=== PATIENT | female | born 1985 | race Two or more races ===

== ENCOUNTER 2019-04-30 22:10 | Emergency (ER) | payer OTHER ==
[~2019-04-30] VITALS: Ht 172.7 cm; Wt 68.0 kg
--- NOTE | 2019-04-30 22:44 | NUR ---
GIOVANNA ONEIL AT BEDSIDE TO VERNELL SUAZO.
[2019-04-30] MEDS ORDERED: KETOROLAC TROMETHAMINE INJ 60 MG/2 ML VIAL IM ONE ×2 (22:51→23:00)
[2019-04-30] MEDS ORDERED: ONDANSETRON HCL/PF 4 MG/2 ML VIAL ONE (22:51)
[2019-04-30] MEDS ORDERED: MORPHINE SULFATE INJ 4 MG/ML DISP.SYRIN ONE (22:52)
[2019-04-30] MEDS ORDERED: ONDANSETRON HCL/PF - ER 4 MG/2 ML VIAL IM ONE (23:00)
[2019-04-30] MEDS ORDERED: MORPHINE SULFATE INJ 10 MG/ML DISP.SYRIN IM ONE (23:00)
--- NOTE | 2019-04-30 23:08 | NUR ---
YUE FROM HOME. TO ER BED 9. AAOX4. BREATHING EVEN AND UNLABORED. ANXIOUS, CRYING. C/O R EAR PAIN. PT REPORTS THAT ITS BEEN 3 DAYS AND REPORTS THAT SHE IS TAKING AUGMENTIN AND IBUBROPHEN BUT NOT EFFECTIVE. PT RATE 05/03 SHANNON. AT BEDSIDE FOR EVAL. ORDERS, RECEIVED NOTED AND CARRIED OUT.
[2019-05-01] MEDS ORDERED: CEFTRIAXONE 1 G VIAL IM ONE
[2019-05-01] MEDS ORDERED: LIDOCAINE /MPF 1% VIAL 5 ML VIAL ONE (00:40)
[2019-05-01] MEDS ORDERED: CEFTRIAXONE 1 G VIAL ONE (00:40)
--- NOTE | 2019-05-01 00:42 | NUR ---
Patient discharged to home in stable condition. Written and verbal after care instructions given. Patient verbalizes understanding of instruction. Pt ambulatory with a steady gait
[2019-05-01 00:45] VITALS: BP 126/88
[2019-05-02] MEDS ORDERED: METF-442 PO (01:39)
[2019-05-02] MEDS ORDERED: INSU100V7 SQ (01:39)
== END 2019-05-01 00:45 | disposition home or self-care (01) ==
LOC: ER 22:15
DX: H65.91 Unspecified nonsuppurative otitis media, right ear (principal); H72.91 Unspecified perforation of tympanic membrane, right ear; E11.9 Type 2 diabetes mellitus without complications
CPT/HCPCS: 96372 ×4; 99283; J0696; J1885; J2270; J2405 ×2; J3490

== ENCOUNTER 2019-05-01 23:23 | Inpatient (IN) | payer OTHER ==
[~2019-05-01] VITALS: Ht 172.7 cm; Wt 66.2 kg
--- NOTE | 2019-05-01 23:40 | NUR ---
LIZA FROM HOME C/O FLU LIKE SYMPTOMS. PT ALSO C/O NAUSEA. PT RECENTLY SEEN AND DISCHARGED FROM [facility] ER YESTERDAY WITH EAR INFECTION DX. PT AAOX4. RESPIRATIONS EVEN AND UNLABORED. SKIN INTACT. ABLE TO AMBULATE WITH STEADY GAIT. VITAL SIGNS STABLE. NO ACUTE DISTRESS NOTED AT THIS TIME. WILL CONTINUE TO MONITOR
[2019-05-02] VITALS (25 sets, daily range): BP systolic 93–136; BP diastolic 55–87
[2019-05-02] MEDS ORDERED: ONDANSETRON HCL/PF 4 MG/2 ML VIAL IVP ONE (00:30)
[2019-05-02] MEDS ORDERED: IV NS 0.9% 1,000 ML BAG IV ONE (00:30)
[2019-05-02] MEDS ORDERED: ONDANSETRON HCL/PF 4 MG/2 ML VIAL ONE ×3 (00:32→03:04)
--- NOTE | 2019-05-02 00:40 | NUR ---
IV INITIATED R AC 20G. LABS DRAWN FROM SITE. DEPUTY SHERIFF LIEUTENANT AT BEDSIDE FOR COLLECTION. IV INTACT AND PATENT, PLACED ON SALINE LOCK
[2019-05-02 00:43] LABS: BASOPHILS % (AUTO) 0.3 % (0.0-2.0); HEMATOCRIT 48 % (33-45); HEMOGLOBIN 15.5 g/dL (11.5-14.8); LYMPHOCYTES % (AUTO) 9.2 % (20.0-44.0); MEAN CORPUSCULAR HGB CONC 32 g/dl (31.0-36.0); MEAN CORPUSCULAR VOLUME 87 fL (82-100); MONOCYTES % (AUTO) 9.1 % (2.0-12.0); NEUTROPHILS # (AUTO) 9.2 /CMM (1.8-8.9); NEUTROPHILS % (AUTO) 81.4 % (43.0-81.0); PLATELET COUNT (AUTO) 407 /CMM (150-450); RED BLOOD CELL COUNT(AUTO) 5.49 MIL/uL (4.0-5.2); WHITE BLOOD COUNT (AUTO) 11.3 K/uL (4.3-11.0)
[2019-05-02 00:53] LABS: CALCIUM, SERUM 8.8 mg/dL (8.5-10.1); CREATININE 1.1 mg/dL (0.6-1.3); POTASSIUM 4.1 mmol/L (3.5-5.1)
[2019-05-02] MEDS ORDERED: ONDANSETRON HCL/PF 4 MG/2 ML VIAL IV ONE (01:30)
--- NOTE | 2019-05-02 01:37 | NUR ---
PT UNABLE TO PROVIDE URINE SAMPLE AT THIS TIME. ER PA AWARE
[2019-05-02] MEDS ORDERED: INSU100V7 SQ (01:39)
[2019-05-02] MEDS ORDERED: METF-442 PO (01:39)
--- NOTE | 2019-05-02 01:54 | NUR ---
URINE COLLECTED AND SENT TO LAB
[2019-05-02 02:02] LABS: APPEARANCE,URINE Slightly Cloudy (CLEAR); BILIRUBIN,URINE SMALL (NEGATIVE); BLOOD, URINE Large Ery/uL (NEGATIVE); COLOR,URINE Yellow (YELLOW); KETONES,URINE 80 (NEGATIVE); LEUKOCYTE ESTERASE ,URINE Negative (NEGATIVE); NITRITE, URINE Negative (NEGATIVE); PROTEIN,URINE 100 mg/dl (NEGATIVE); UGLUCOSE 500 MG/DL mg/dL (NEGATIVE); UROBILINOGEN,URINE 0.2 EU/dL (0.2)
[2019-05-02 02:17] LABS: BACTERIA,URINE Few /HPF (None Seen); RBC,URINE 51-80 /HPF (0-2); SQUAMOUS EPITHELIAL CELL,UR Few /HPF (None Seen)
[2019-05-02] MEDS ORDERED: IV NS 0.9% 1,000 ML IV STA (02:56)
[2019-05-02] MEDS ORDERED: IV NS 0.9% 1,000 ML IV PRN (02:56)
[2019-05-02] MEDS ORDERED: ZOLPIDEM TARTRATE 5 MG TABLET PO PRN (03:00)
[2019-05-02] MEDS ORDERED: INSULIN REGULAR, HUMAN 100 UNIT in IV NS 0.9% 99 ML IV PRN ×2 (03:00)
--- NOTE | 2019-05-02 03:05 | NUR ---
REPORT GIVEN TO ANABEL GALLARDO FOR ELVIS
[2019-05-02] MEDS ORDERED: ONDANSETRON HCL/PF 4 MG/2 ML VIAL IV STA (03:08)
--- NOTE | 2019-05-02 03:26 | NUR ---
PT TRANSFERRED PER ACLS PROTOCOL
--- NOTE | 2019-05-02 03:45 | NUR ---
CANNON CREWMEMBER - ADMISSION NOTES - PT RECEIVED FROM ER, AWAKE, ALERT, ORIENTED X 4 ADMITTED FOR DKA WITH ELEVATED ANION GAP AND LOW CO2. PT IS ON ROOM AIR, PER DR RAJ WEATHERS PT WILL BE GIVEN 1000 ML NS BOLUS AND STARTED ON NS @ 200 ML/HR AND WILL BE ON INSULIN DRIP BLOOD SUGAR X 1.5 DIVIDED BY 100 = UNITS PER HOUR. PT HAS RIGHT AC 20G AND LEFT AC 20G. WILL CONTINUE MONITOR
[2019-05-02] MEDS: ENOXAPARIN SODIUM 40 MG/0.4 ML DISP.SYRIN SQ SCH (04:02)
[2019-05-02] MEDS: ACETAMINOPHEN 325 MG TABLET PO PRN (04:07)
--- NOTE | 2019-05-02 04:29 | NUR ---
pt is a hard stick for lab, pt complaining of pain. Chago Maciel DNP notified and ordered PICC line insertion. pt signed consent for PICC line, nursing supervisor dry cell assembly notified.
[2019-05-02 04:54] LABS: BASOPHILS # (AUTO) 0.1 /CMM (0.0-0.2); BASOPHILS % (AUTO) 0.6 % (0.0-2.0); HEMATOCRIT 44 % (33-45); HEMOGLOBIN 14.1 g/dL (11.5-14.8); LYMPHOCYTES # (AUTO) 1.3 /CMM (0.8-4.8); LYMPHOCYTES % (AUTO) 8.9 % (20.0-44.0); MEAN CORPUSCULAR HGB CONC 32 g/dl (31.0-36.0); MEAN CORPUSCULAR VOLUME 88 fL (82-100); MONOCYTES # (AUTO) 1.4 /CMM (0.1-1.30); MONOCYTES % (AUTO) 9.5 % (2.0-12.0); NEUTROPHILS # (AUTO) 11.6 /CMM (1.8-8.9); PLATELET COUNT (AUTO) 415 /CMM (150-450); RED BLOOD CELL COUNT(AUTO) 5.03 MIL/uL (4.0-5.2); WHITE BLOOD COUNT (AUTO) 14.3 K/uL (4.3-11.0)
[2019-05-02 05:08] LABS: ALBUMIN 3.5 g/dL (3.4-5.0); BILIRUBIN,TOTAL 0.3 mg/dL (0.2-1.0); CALCIUM, SERUM 7.5 mg/dL (8.5-10.1); CREATININE 0.9 mg/dL (0.6-1.3); MAGNESIUM 1.8 mg/dL (1.8-2.4); PHOSPHORUS 2.7 mg/dL (2.5-4.9); POTASSIUM 4.3 mmol/L (3.5-5.1); TOTAL PROTEIN, SERUM 8.2 g/dL (6.4-8.2)
[2019-05-02] MEDS: BLOOD SUGAR DIAGNOSTIC 1 EACH STRIP IN SCH ×19 (05:10→23:21)
[2019-05-02] MEDS ORDERED: Potassium Chloride 20 MEQ in IV D5/ 0.9% NACL 1,000 ML IV PRN (06:00)
[2019-05-02] MEDS: INSULIN REGULAR, HUMAN 100 UNIT in IV NS 0.9% 99 ML IV PRN ×2 (06:14)
[2019-05-02 08:32] LABS: CALCIUM, SERUM 7.8 mg/dL (8.5-10.1); POTASSIUM 3.8 mmol/L (3.5-5.1)
[2019-05-02 09:00] LABS: ABG BASE EXCESS -24.1 mmol/L; ABG PCO2 10.8 mmHg (35.0-45.0); ABG PH 7.096 (7.350-7.450); ABG PO2 164.7 mmHg (75.0-100.0); AaDO2 79.5 mmHg; COHb 0.9 % (0.5-1.5); MetHb 0.2 % (0.0-1.5); O2Hb 96.9 % (94.0-97.0); SITE, ABG Left Radial; VENT MODE, BG 4L NC
[2019-05-02] MEDS ORDERED: Sodium Bicarbonate 150 MEQ in IV D5W 1,000 ML IV ONE (09:30)
[2019-05-02] MEDS ORDERED: PIPERACILLIN /TAZOBACTAM 4.5 G in IV D5W 50 ML IV ONE (10:00)
[2019-05-02 12:02] LABS: CALCIUM, SERUM 7.5 mg/dL (8.5-10.1); CREATININE 0.8 mg/dL (0.6-1.3); MAGNESIUM 1.8 mg/dL (1.8-2.4); POTASSIUM 3.3 mmol/L (3.5-5.1)
--- NOTE | 2019-05-02 13:22 | NUR ---
RN NOTES 0730-RECEIVED PATIENT FROM RN. PATIENT REMAINS ON INSULIN DRIP FOR DKA.IVF ALSO INFUSING.SHE IS TACHYPNEIC, TACHYCARDIC. DENIES PAIN. 1100-ON INUSLIN DRIP, BICARB DRIP ONGOING, FOR PICC LINE PLACEMENT. 1200-INSULIN DRIP ONGOING. DENIES PAIN. BICARB DRIP ONGOING, SINUS RHYTHM. 1315-LABS RELAYED TO DR Rena MCKENZIE MD WITH ORDERS NOTED
[2019-05-02 13:32] LABS: ABG BASE EXCESS -15.8 mmol/L; ABG OXYGEN SATURATION 97.9 % (92.0-98.5); ABG PCO2 18.9 mmHg (35.0-45.0); ABG PH 7.281 (7.350-7.450); ABG PO2 152.5 mmHg (75.0-100.0); AaDO2 53.5 mmHg; COHb 0.2 % (0.5-1.5); MetHb 0.1 % (0.0-1.5); O2Hb 97.6 % (94.0-97.0); SITE, ABG Left Brachial; VENT MODE, BG 3L NC
[2019-05-02] MEDS: Magnesium 1GM/D5W 100ML PREMIX 100 ML IV SCH ×2 (13:33→14:31)
[2019-05-02] MEDS: POTASSIUM CL. PREMIX PERIPHER. 50 ML IV SCH ×4 (15:03→18:28)
[2019-05-02] MEDS: PIPERACILLIN /TAZOBACTAM 3.375 G in IV D5W 100 ML IV SCH (16:26)
[2019-05-02] MEDS ORDERED: SODIUM BICARBONATE 5 ML VIAL IV SCH (17:30)
[2019-05-02 18:10] LABS: CALCIUM, SERUM 7.4 mg/dL (8.5-10.1); CREATININE 0.8 mg/dL (0.6-1.3); MAGNESIUM 2.5 mg/dL (1.8-2.4)
[2019-05-02] MEDS: Sodium Bicarbonate 150 MEQ in IV D5W 1,000 ML IV PRN (18:13)
--- NOTE | 2019-05-02 19:56 | NUR ---
rn notes 1400-remains on insulin drip, titrated as ordered, bicarb drip ongoing as well. patient breathing noted within range, saturation up to 100%. no n/v 1700-afebrile, insuloin and bicarb drip ongoing 1900-labs relayed to dr. harley MD with orders noted. report gvien to rn for further care. patient started on clear liquids, no n/v noted.
--- NOTE | 2019-05-02 20:00 | NUR ---
CONCRETE SAW OPERATOR - NOTES - PT RECEIVED IN BED, AWAKE, ALERT, ORIENTED X 4 ADMITTED FOR DKA. PT IS ON 3L NASAL CANNULA. PT HAS YANICK PICC LINE WITH D5W W 150 MEQ BICARB @ 150 ML/HR AND INSULIN DRIP BLOOD SUGAR X 2 DIVIDED BY 100 = UNITS PER HOUR. PT HAS RIGHT AC 20G AND LEFT AC 20G. WILL CONTINUE MONITOR
[2019-05-02] MEDS: POTASSIUM CHLORIDE 10 MEQ TABLET.SA PO SCH ×4 (20:25→23:38)
[2019-05-02 23:11] LABS: CALCIUM, SERUM 7.2 mg/dL (8.5-10.1); CREATININE 0.7 mg/dL (0.6-1.3); POTASSIUM 2.9 mmol/L (3.5-5.1)
[2019-05-02 23:14] LABS: MAGNESIUM 2.2 mg/dL (1.8-2.4)
[2019-05-02 23:29] LABS: PHOSPHORUS 0.3 mg/dL (2.5-4.9)
[2019-05-03] VITALS (20 sets, daily range): BP systolic 88–118; BP diastolic 48–74
[2019-05-03] MEDS ORDERED: D5W IV SCH ×2
[2019-05-03] MEDS ORDERED: POTASSIUM PHOSPHATE MM IV SCH ×2
[2019-05-03] MEDS: BLOOD SUGAR DIAGNOSTIC 1 EACH STRIP IN SCH ×13 (00:07→22:41)
[2019-05-03] MEDS: ACETAMINOPHEN 325 MG TABLET PO PRN ×2 (00:09→07:34)
[2019-05-03] MEDS: PIPERACILLIN /TAZOBACTAM 3.375 G in IV D5W 100 ML IV SCH ×4 (00:09→23:41)
[2019-05-03] MEDS: POTASSIUM CHLORIDE 10 MEQ TABLET.SA PO SCH ×2 (00:25→01:25)
[2019-05-03] MEDS: ONDANSETRON HCL/PF 4 MG/2 ML VIAL IVP PRN ×2 (00:50→11:34)
[2019-05-03] MEDS: POTASSIUM PHOSPHATE MM 15 MMOL in IV D5W 250 ML IV SCH ×2 (00:51→05:23)
[2019-05-03] MEDS ORDERED: POTASSIUM CHLORIDE 10 MEQ TABLET.SA ONE (01:24)
[2019-05-03] MEDS: Sodium Bicarbonate 150 MEQ in IV D5W 1,000 ML IV PRN (02:11)
[2019-05-03] MEDS: ENOXAPARIN SODIUM 40 MG/0.4 ML DISP.SYRIN SQ SCH (02:14)
[2019-05-03 04:16] LABS: CALCIUM, SERUM 7.3 mg/dL (8.5-10.1); CREATININE 0.7 mg/dL (0.6-1.3); MAGNESIUM 2.2 mg/dL (1.8-2.4); POTASSIUM 3.1 mmol/L (3.5-5.1)
[2019-05-03 04:22] LABS: PHOSPHORUS 0.5 mg/dL (2.5-4.9)
[2019-05-03] MEDS: INSULIN REGULAR, HUMAN 100 UNIT in IV NS 0.9% 99 ML IV PRN ×2 (04:23)
--- NOTE | 2019-05-03 07:00 | NUR ---
RN NOTES RECEIVED PT ON BED, A/Ox4, ON 3L O2 N/C , NO SOB NOTED, ON TELE SR HR IN 80'S , ON INSULIN GTT AND IVF , R UPPER ARM PICC LINE SITE CLEAN,DRY AND INTACT, SR UP x3, CALL LIGHT WITHIN EASY REACH, BED LOCKED AND IN LOWEST POSITION, CONTINUE TO MONITOR BLOOD GLUCOSE AND MONITOR PT CLOSELY.
[2019-05-03 07:54] LABS: CALCIUM, SERUM 7.3 mg/dL (8.5-10.1); CREATININE 0.6 mg/dL (0.6-1.3); MAGNESIUM 2.1 mg/dL (1.8-2.4)
[2019-05-03 07:57] LABS: PHOSPHORUS 0.9 mg/dL (2.5-4.9); POTASSIUM 2.8 mmol/L (3.5-5.1)
--- NOTE | 2019-05-03 08:15 | NUR ---
RN NOTES DR ROSALES NOTIFED REGARDING K=2.8 AND PHOSPHOROUS 0.9, NEW ORDER RECEIVED.
[2019-05-03] MEDS ORDERED: IV NS 0.9% 1,000 ML BAG IV PRN (09:00)
[2019-05-03] MEDS ORDERED: INSULIN GLARGINE, 100 UNIT/ML CARTRIDGE SQ SCH (09:00)
[2019-05-03] MEDS ORDERED: POTASSIUM PHOSPHATE MM 15 MMOL in IV D5W 250 ML IV SCH (09:00)
[2019-05-03] MEDS: IV NS 0.9% 1,000 ML IV PRN (09:14)
[2019-05-03 09:23] LABS: BASOPHILS # (AUTO) 0.1 /CMM (0.0-0.2); BASOPHILS % (AUTO) 0.9 % (0.0-2.0); EOSINOPHILS % (AUTO) 0.7 % (0.0-6.0); HEMATOCRIT 31 % (33-45); HEMOGLOBIN 10.6 g/dL (11.5-14.8); LYMPHOCYTES # (AUTO) 1.4 /CMM (0.8-4.8); LYMPHOCYTES % (AUTO) 22.7 % (20.0-44.0); MEAN CORPUSCULAR HGB CONC 34 g/dl (31.0-36.0); MEAN CORPUSCULAR VOLUME 82 fL (82-100); MONOCYTES # (AUTO) 0.8 /CMM (0.1-1.30); MONOCYTES % (AUTO) 12.3 % (2.0-12.0); NEUTROPHILS % (AUTO) 63.4 % (43.0-81.0); PLATELET COUNT (AUTO) 268 /CMM (150-450); RED BLOOD CELL COUNT(AUTO) 3.82 MIL/uL (4.0-5.2); WHITE BLOOD COUNT (AUTO) 6.3 K/uL (4.3-11.0)
[2019-05-03] MEDS ORDERED: DEXTROSE 50%-WATER 50 ML DISP.SYRIN IV PRN (10:00)
[2019-05-03] MEDS ORDERED: POTASSIUM CHLORIDE 20 MEQ TAB.PRT.SR PO SCH (10:30)
[2019-05-03] MEDS ORDERED: NEUTRA PHOS 1 POWD.PACKET PO ONE (11:00)
[2019-05-03] MEDS: INSULIN REGULAR, HUMAN 100 UNIT/ML 3 ML VIAL SQ PRN ×2 (12:22→17:07)
--- NOTE | 2019-05-03 12:57 | NUR ---
RN NOTES PT C/O H/A , STATED WANTS IBUPROFEN , DR BAINS NOTIFED , NEW ORDER RECEIVED .CONTINUE TO MONITOR.
[2019-05-03] MEDS ORDERED: IBUPROFEN 400 MG TABLET PO PRN (13:00)
--- NOTE | 2019-05-03 13:30 | NUR ---
RN NOTES PT REFUSED TO USE BSC. PT WALKED TO THE BATHROOM . VOIDING WELL, NO DISTRESS NOTED . CONTINUE TO MONITOR.
[2019-05-03] MEDS: Potassium Phosphate meq 11 MEQ in IV NS 0.9% 100 ML IV SCH ×2 (13:57→17:00)
--- NOTE | 2019-05-03 16:00 | NUR ---
RN NOTES PT STATED FEELS BETTER , VSS STABLE, CONTINUE TO MONITOR .
--- NOTE | 2019-05-03 18:00 | NUR ---
RN NOTES REPORT GIVEN TO SHAMIKA LITTLE FOR CONTINUITY OF CARE , PT TRANSFERRED TO ROOM 106, MS STATUS VIA W/C WITH ALL HER BELONGINGS IN STABLE CONDITION.
[2019-05-03 19:39] LABS: CALCIUM, SERUM 7.4 mg/dL (8.5-10.1); CREATININE 0.7 mg/dL (0.6-1.3); POTASSIUM 3.8 mmol/L (3.5-5.1)
[2019-05-03 19:43] LABS: PHOSPHORUS 3.1 mg/dL (2.5-4.9)
[2019-05-03] MEDS: *INSULIN REGULAR(HUMULIN R)HUM 100 UNIT/ML VIAL SQ PRN (22:37)
[2019-05-04] VITALS: BP 111/70
[2019-05-04] MEDS: ENOXAPARIN SODIUM 40 MG/0.4 ML DISP.SYRIN SQ SCH (03:25)
[2019-05-04] MEDS: IV NS 0.9% 1,000 ML IV PRN (03:32)
[2019-05-04 04:00] VITALS: BP 124/85
[2019-05-04] MEDS ORDERED: KETOROLAC TROMETHAMINE INJ 30 MG/ML VIAL IV ONE ×2 (04:00→04:30)
--- NOTE | 2019-05-04 04:02 | NUR ---
MS/RN C/O EAR PAIN DUE TO PRESSURE, OFFERED MOTRIN BUT REFUSED, NOTIFIED DR. RAJ WEATHERS WITH ORDER OF TORADOL 30 MG IVP X 1 WAS RECEIVED. CARRIED OUT.
[2019-05-04] MEDS: INSULIN REGULAR, HUMAN 100 UNIT/ML 3 ML VIAL SQ PRN ×2 (05:59→12:24)
[2019-05-04] MEDS: BLOOD SUGAR DIAGNOSTIC 1 EACH STRIP IN SCH ×4 (06:00→21:32)
--- NOTE | 2019-05-04 06:20 | NUR ---
MS/RN PATIENT IS SLEEPING, EASILY AROUSABLE, APPEAR COMFORTABLE, NO DISTRESS NOTED, ALL NEEDS ATTENDED AT THIS TIME, WILL CONTINUE TO MONITOR.
--- NOTE | 2019-05-04 07:11 | NUR ---
MS RN OPENING NOTE RECEIVED REPORT FROM [facility] SHIFT NURSE. PT AWAKE IN BED, ALERT AND ORIENTED 4, ON ROOM AIR, SATURATING WELL, NO SIGNS OF RESPIRATORY DISTRESS NOTED. IV SITE ON RIGHT AC G20 PATENT, INTACT WITH SALINE LOCK. IV SITE ON LEFT AC G20 PATENT, INTACT, WITH SALINE LOCK. NS INFUSING AT 125ML/HR INTO PICC LINE ON RIGHT UPPER ARM. BED IN LOW POSITION, LOCKED, CALL LIGHT WITHIN REACH. INTRODUCED SELF TO PT AND DISCUSSED PLAN OF CARE.
[2019-05-04] MEDS: PIPERACILLIN /TAZOBACTAM 3.375 G in IV D5W 100 ML IV SCH ×3 (07:32→23:47)
--- NOTE | 2019-05-04 07:35 | NUR ---
RECEIVED CALL FROM LAB WITH CRITICAL RESULT POTASSIUM 2.7, SPOKE WITH BRANDON
[2019-05-04 07:36] LABS: CALCIUM, SERUM 7.4 mg/dL (8.5-10.1); CREATININE 0.5 mg/dL (0.6-1.3); PHOSPHORUS 2.3 mg/dL (2.5-4.9)
[2019-05-04 07:39] LABS: POTASSIUM 2.7 mmol/L (3.5-5.1)
[2019-05-04] MEDS ORDERED: ANTIPYRINE/BENZOCAINE/GLYCERIN 15 ML DROPS RIGHT EAR PRN (08:00)
[2019-05-04 08:44] LABS: BASOPHILS % (AUTO) 0.5 % (0.0-2.0); EOSINOPHILS % (AUTO) 1.5 % (0.0-6.0); HEMATOCRIT 30 % (33-45); HEMOGLOBIN 10.2 g/dL (11.5-14.8); LYMPHOCYTES # (AUTO) 1.6 /CMM (0.8-4.8); LYMPHOCYTES % (AUTO) 32.2 % (20.0-44.0); MEAN CORPUSCULAR HGB CONC 34 g/dl (31.0-36.0); MEAN CORPUSCULAR VOLUME 83 fL (82-100); MONOCYTES # (AUTO) 0.6 /CMM (0.1-1.30); MONOCYTES % (AUTO) 12.2 % (2.0-12.0); NEUTROPHILS # (AUTO) 2.6 /CMM (1.8-8.9); NEUTROPHILS % (AUTO) 53.6 % (43.0-81.0); PLATELET COUNT (AUTO) 256 /CMM (150-450); RED BLOOD CELL COUNT(AUTO) 3.66 MIL/uL (4.0-5.2); WHITE BLOOD COUNT (AUTO) 4.8 K/uL (4.3-11.0)
[2019-05-04] MEDS: INSULIN GLARGINE, 100 UNIT/ML CARTRIDGE SQ SCH (08:45)
[2019-05-04] MEDS ORDERED: KETOROLAC TROMETHAMINE INJ 30 MG/ML VIAL IM PRN (09:00)
[2019-05-04] MEDS: Potassium Phosphate meq 11 MEQ in IV D5W 100 ML IV SCH ×2 (09:14→11:47)
[2019-05-04] MEDS ORDERED: DICLOFENAC 0.1% OPTH DROPS 5 ML BOTTLE EACHEYE PRN (10:00)
--- NOTE | 2019-05-04 10:02 | NUR ---
dr. españa office notified c/o hortencia for ear consult per dr. souza request for possible otitis.
[2019-05-04] MEDS: CIPROFLOXACIN HCL 0.3% 5 ML BOTTLE OT SCH ×2 (10:05→21:29)
[2019-05-04] MEDS ORDERED: IV NS 0.9% 250 ML IV ONE (10:39)
[2019-05-04] MEDS ORDERED: IOHEXOL-300 100 ML VIAL IV ONE (10:39)
[2019-05-04] MEDS ORDERED: CT SWABBABLE VALVE TRANS SET 1 EA INFUS.SET MC ONE (10:40)
--- NOTE | 2019-05-04 10:40 | NUR ---
PT TRANSPORTED VIA WHEELCHAIR TO RADIOLOGY IN STABLE CONDITION
--- NOTE | 2019-05-04 11:03 | NUR ---
RETURNED FROM RADIOLOGY IN STABLE CONDITION
[2019-05-04] MEDS ORDERED: DICLOFENAC 0.1% OPTH DROPS 5 ML BOTTLE OT PRN (11:30)
--- NOTE | 2019-05-04 12:40 | NUR ---
made aware of EENT consult ,dr. souza made aware he needs to call DR. Quiroz for consult .
[2019-05-04] MEDS ORDERED: FEE PK DOSING 1 MIN EA MC ONE (14:41)
[2019-05-04] MEDS ORDERED: VANCOMYCIN 1.25 GM in IV D5W 500 ML IV SCH (15:00)
[2019-05-04] MEDS: ACETAMINOPHEN 325 MG TABLET PO PRN (15:08)
[2019-05-04] MEDS: VANCOMYCIN HCL 1.25 GM in IV D5W 250 ML IV SCH ×2 (16:13→22:40)
[2019-05-04] MEDS: *INSULIN REGULAR(HUMULIN R)HUM 100 UNIT/ML VIAL SQ PRN ×2 (17:47→21:32)
--- NOTE | 2019-05-04 18:52 | NUR ---
MS RN CLOSING NOTE PT AWAKE IN BED, ALERT AND ORIENTED X 4, ON ROOM AIR, SATURATING WELL, NO SIGNS OF RESPIRATORY DISTRESS NOTED. NO SIGNS OF HYPO/HYPERGLYCEMIA NOTED. RIGHT UPPER ARM PICC LINE PATENT, INTACT. IV SITE ON LEFT AC G20 PATENT, INTACT WITH SALINE LOCK. PROVIDED SAFETY AND COMFORT TO PT THROUGHOUT SHIFT, ALL DUE MEDS GIVEN. BED IN LOW POSITION, LOCKED, CALL LIGHT WITHIN REACH. WILL ENDORSE TO NOC SHIFT NURSE.
[2019-05-04 19:18] LABS: CALCIUM, SERUM 8.1 mg/dL (8.5-10.1); CREATININE 0.6 mg/dL (0.6-1.3); MAGNESIUM 2.1 mg/dL (1.8-2.4); PHOSPHORUS 2.8 mg/dL (2.5-4.9); POTASSIUM 3.3 mmol/L (3.5-5.1)
[2019-05-04 20:00] VITALS: BP 122/79
[2019-05-04] MEDS: Potassium Chloride 40 MEQ in IV NS 0.9% 1,000 ML IV PRN (21:41)
[2019-05-05] MEDS: ACETAMINOPHEN 325 MG TABLET PO PRN ×4 (01:40→23:02)
[2019-05-05] MEDS: ENOXAPARIN SODIUM 40 MG/0.4 ML DISP.SYRIN SQ SCH (03:06)
[2019-05-05 06:18] VITALS: BP 118/76
--- NOTE | 2019-05-05 06:32 | NUR ---
MS RN CLOSING NOTES: PATIENT IS RESTING COMFORTABLY IN BED. A/O X4. AMBULATORY. NO ACUTE EVENTS OVERNIGHT. MEDICATED ONCE WITH TYLENOL PO FOR HEADACHE,RELIEVED. WITH RIGHT UPPER ARM PICC LINE INTACT, NO BLEEDING NOTED. VITALS STABLE. CALL LIGHT WITHIN REACH. BED IN LOWEST AND LOCKED POSITION.
[2019-05-05] MEDS: VANCOMYCIN HCL 1.25 GM in IV D5W 250 ML IV SCH ×3 (06:47→23:02)
--- NOTE | 2019-05-05 06:48 | NUR ---
MED VANCOMYCIN DUE AT 0700 IS NOT AVAILABLE,WILL ENDORSE TO THE NEXT SHIFT RN FOR FOLLOW UP.
--- NOTE | 2019-05-05 07:30 | NUR ---
RN OPENING NOTES RECEIVED PATIENT SLEEPING IN BED COMFORTABLY, EASILY AROUSED. SHE IS AOX4, VERBAL, AND AMBULATORY. SHE IS ON RA, TOLERATING WELL, SHOWS NO S/SX OF RESP DISTRESS OR SOB. SKIN IS INTACT, NO WOUNDS PRESENT. SHE IS ON CCHO DIET. SHE HAS A YANICK PICC LINE INFUSING NS WITH 40 MEQ POTASSIUM. LAC 20G IV SITE IS STILL INTACT. WILL MONITOR BLOOD GLUCOSE LEVELS ROUTINELY. SAFETY MEASURES HAVE BEEN IMPLEMENTED, CALL LIGHT IS WITHIN REACH, BED IS IN LOWEST AND LOCKED POSITION, SIDE RAILS UP X2, WILL CONTINUE TO MONITOR FOR ANY CHANGES.
[2019-05-05 08:00] VITALS: BP_SYST 113; BP_SYST 127; BP_DIAS 80; BP_DIAS 85
--- NOTE | 2019-05-05 08:00 | NUR ---
IV ZOSYN WILL BE DELAYED. PT IS RECEIVING VANCOMYCIN AND DRUGS ARE NOT COMPATIBLE. WILL INFUSE ONCE APPROPRIATE
[2019-05-05] MEDS: INSULIN REGULAR, HUMAN 100 UNIT/ML 3 ML VIAL SQ PRN ×3 (08:05→18:29)
[2019-05-05] MEDS: BLOOD SUGAR DIAGNOSTIC 1 EACH STRIP IN SCH ×4 (08:07→23:31)
[2019-05-05] MEDS: INSULIN GLARGINE, 100 UNIT/ML CARTRIDGE SQ SCH (09:01)
[2019-05-05] MEDS ORDERED: POTASSIUM CHLORIDE 20 MEQ TAB.PRT.SR PO ONE (10:00)
[2019-05-05] MEDS: CIPROFLOXACIN HCL 0.3% 5 ML BOTTLE OT SCH ×2 (10:23→23:04)
--- NOTE | 2019-05-05 10:33 | NUR ---
MORNING DOSE OF VANCOMYCIN (0700) GIVEN AN UNSCHEDULED ADMINISTRATION. SPOKE WITH GA FROM PHARMACY
[2019-05-05] MEDS: PIPERACILLIN /TAZOBACTAM 3.375 G in IV D5W 100 ML IV SCH ×3 (11:49→23:03)
[2019-05-05 16:00] VITALS: BP 128/87
--- NOTE | 2019-05-05 19:50 | NUR ---
RN CLOSING NOTES PATIENT IS RESTING IN BED COMFORTABLY AT THIS TIME. SHE DENIES ANY PAIN, DISCOMFORT, OR SOB. NO ACUTE CHANGES OCCURRED THROUGHOUT THE DAY, VITAL SIGNS STABLE, PT NEEDS HAVE BEEN MET. SAFETY MEASURES HAVE BEEN IMPLEMENTED, CALL LIGHT IS WITHIN REACH, BED IS IN LOWEST AND LOCKED POSITION, SIDE RAILS UP X2, PT HAS BEEN ENDORSED TO NIGHTSHIFT RN FOR CONTINUITY OF CARE.
[2019-05-05 20:00] VITALS: BP 128/93
--- NOTE | 2019-05-05 20:49 | NUR ---
RN NOTE INITIAL ASSESSMENT. RECEIVED THE PT REST ON THE BED. AWAKE, ALERT. FOLLOW COMMANDS. PT ON ROOM AIR. SAT 97%. NO ACUTE DISTRESS NOTED, IV RT UPPER ARM PICC LINE IVF NS IN 40MEQ POTASSIUM 125 ML/H. TURN AND REPOSITION PT IS INDEPENDENT. . AFEBRILE. WILL CONTINUE TO MONITOR VITALS.
[2019-05-05] MEDS: *INSULIN REGULAR(HUMULIN R)HUM 100 UNIT/ML VIAL SQ PRN (23:35)
[2019-05-05] MEDS: Potassium Chloride 40 MEQ in IV NS 0.9% 1,000 ML IV PRN (23:36)
[2019-05-06] VITALS: BP 118/65
--- NOTE | 2019-05-06 03:39 | NUR ---
DEBT AND BUDGET COUNSELOR AM CARE. ORAL CARE GIVEN. PT ON AND OFF SLEPT WELL DURING SHIFT. HOB ELEVATED, REMAINING SAME IVF FLUIDS RUNNING. WILL CONTINUE TO MONITOR VITALS.
[2019-05-06 04:00] VITALS: BP 123/85
[2019-05-06] MEDS: ENOXAPARIN SODIUM 40 MG/0.4 ML DISP.SYRIN SQ SCH (05:47)
[2019-05-06 07:19] LABS: CALCIUM, SERUM 8.9 mg/dL (8.5-10.1); CREATININE 0.6 mg/dL (0.6-1.3); POTASSIUM 3.9 mmol/L (3.5-5.1)
--- NOTE | 2019-05-06 07:43 | NUR ---
MS RN NOTES CALLED PHARMACY FOR VANCO T 20 AND THEY CONFIRMED THAT IS OK TO GIVE VANCO TO PT.
[2019-05-06] MEDS: VANCOMYCIN HCL 1.25 GM in IV D5W 250 ML IV SCH (07:57)
[2019-05-06 08:00] VITALS: BP 125/94
[2019-05-06] MEDS: BLOOD SUGAR DIAGNOSTIC 1 EACH STRIP IN SCH ×4 (08:05→22:32)
--- NOTE | 2019-05-06 08:10 | NUR ---
MS RN NOTES PT IS A/OX4 SITTING IN THE BED. COMPLAINING OF RIGHT EAR DULL PAIN. MORPHINE [address] MCKENZIE. PT IS COMPLIANT, NO SIGNS OF SOB NOTED AT THIS TIME. BED AT THE LOWEST POSITION LOCKED CALL LIGHT WITHIN REACH. WILL CONTINUE TO MONITOR.
[2019-05-06] MEDS: INSULIN REGULAR, HUMAN 100 UNIT/ML 3 ML VIAL SQ PRN ×4 (08:31→22:29)
[2019-05-06] MEDS: IBUPROFEN 600 MG TABLET PO PRN ×2 (10:07→18:11)
[2019-05-06] MEDS: PIPERACILLIN /TAZOBACTAM 3.375 G in IV D5W 100 ML IV SCH ×2 (10:11→16:49)
[2019-05-06] MEDS: CIPROFLOXACIN HCL 0.3% 5 ML BOTTLE OT SCH ×2 (10:23→22:32)
[2019-05-06] MEDS ORDERED: INSULIN GLARGINE, 100 UNIT/ML CARTRIDGE SQ SCH (10:30)
[2019-05-06] MEDS: INSULIN GLARGINE, 100 UNIT/ML CARTRIDGE SQ SCH (10:49)
[2019-05-06] MEDS: Potassium Chloride 40 MEQ in IV NS 0.9% 1,000 ML IV PRN (12:59)
[2019-05-06] MEDS: VANCOMYCIN 0.75 GM in IV D5W 250 ML IV SCH ×2 (15:24→23:25)
[2019-05-06 16:00] VITALS: BP_SYST 125; BP_SYST 128; BP_DIAS 76; BP_DIAS 94
[2019-05-06 16:25] LABS: HIV SCRN 4G wRFX Non Reactive (Non Reactive)
[2019-05-06] MEDS: LACTOBACILLUS RHAMNOSUS GG 1 EACH CAP.SPRINK PO SCH (17:00)
--- NOTE | 2019-05-06 19:30 | NUR ---
MS RN NOTES PT IS A/OX4 SITTING IN THE BED. NO COMPLAIN OF PAIN OR SOB AT THIS TIME. MIDLINE IS PATENT AND FLUSHED WITH NS WELL. BED AT THE LOWEST POSITION LOCKED CALL LIGHT WITHIN REACH. WILL CONTINUE TO MONITOR. ENDORSED TO STAFF RESEARCH SCIENTIST NURSE FOR ELVIS.
--- NOTE | 2019-05-06 19:30 | NUR ---
MS RN OPENING NOTES RECEIVED PATIENT A/OX4. PATIENT IS ON ROOM AIR WITH NO SIGNS OF SOB. NO DISTRESS OR DISCOMFORT AT THE MOMENT. PATIENT HAS IV YANICK PICC LINE PATENT AND FLUSHING. ALL SKIN IS INTACT. ALL SAFETY PRECAUTIONS APPLIED. SIDE RAILS UP, CALL LIGHT WITHIN REACH, AND BED LOCKED IN LOW POSITIONS. WILL CONTINUE TO MONITOR PATIENT.
[2019-05-06 20:00] VITALS: BP 107/74
[2019-05-07] MEDS: PIPERACILLIN /TAZOBACTAM 3.375 G in IV D5W 100 ML IV SCH ×3 (00:46→17:38)
[2019-05-07] MEDS: IBUPROFEN 600 MG TABLET PO PRN ×3 (03:08→19:44)
[2019-05-07 04:00] VITALS: BP 97/64
[2019-05-07] MEDS: Potassium Chloride 40 MEQ in IV NS 0.9% 1,000 ML IV PRN (06:44)
[2019-05-07] MEDS: INSULIN REGULAR, HUMAN 100 UNIT/ML 3 ML VIAL SQ PRN ×4 (06:54→21:37)
[2019-05-07] MEDS: BLOOD SUGAR DIAGNOSTIC 1 EACH STRIP IN SCH ×4 (06:58→21:42)
--- NOTE | 2019-05-07 07:05 | NUR ---
MS RN NOTES RECEIVED PT IN BED A/O X4. RESPIRATION WNL. PICC LINE FLUSHED AN PATENT. BED AT LOWEST POSITION LOCKED . CALL LIGHT WITHIN REACH. WILL CONTINUE TO MONITOR.
[2019-05-07 07:42] LABS: CALCIUM, SERUM 8.6 mg/dL (8.5-10.1); CREATININE 0.5 mg/dL (0.6-1.3); POTASSIUM 4.1 mmol/L (3.5-5.1)
[2019-05-07 08:00] VITALS: BP 112/73
--- NOTE | 2019-05-07 08:00 | NUR ---
MS RN NOTES CALLED PHARMACY FOR VANCOMYCIN TROUGH LEVEL AND THEY CONFIRMED ITS SAFE TO ADMINISTER VANCOMYCIN.
[2019-05-07] MEDS: VANCOMYCIN 0.75 GM in IV D5W 250 ML IV SCH ×3 (08:02→23:38)
--- NOTE | 2019-05-07 08:23 | NUR ---
MS RN NOTE PATIENT IN BED ASLEEP WITH NO SIGNS OF DISTRESS OR ANY PAIN. PICC LINE ON RIGHT IS RUNNING WITH NO OBSTRUCTIONS. ALL SAFETY PRECAUTIONS APPLIED. ENDORSED PATIENT TO MORNING NURSE.
[2019-05-07] MEDS: LACTOBACILLUS RHAMNOSUS GG 1 EACH CAP.SPRINK PO SCH ×2 (09:00→17:00)
[2019-05-07] MEDS: CIPROFLOXACIN HCL 0.3% 5 ML BOTTLE OT SCH ×2 (09:35→21:24)
[2019-05-07] MEDS: INSULIN GLARGINE, 100 UNIT/ML CARTRIDGE SQ SCH (09:56)
[2019-05-07] MEDS: ENOXAPARIN SODIUM 40 MG/0.4 ML DISP.SYRIN SQ SCH (09:57)
--- NOTE | 2019-05-07 11:10 | NUR ---
MS RN NOTES MOTRIN 600 DID NOT ADMINISTERED PT RECIVED IT PREVIOUSLY. WILL BE RETURNED TO [facility].
--- NOTE | 2019-05-07 11:30 | NUR ---
MS RN NOTES PHARMACY INFORMED ABOUT THE 4.[address] MCKENZIE TO STOP THE POTASSIUM CHLORIDE ORDER. PER DR MCKENZIE ORDER IS OK TO DISCONTINUE THE POTASSIUM CHLORIDE.
[2019-05-07 12:00] VITALS: BP 112/73
[2019-05-07 16:00] VITALS: BP 127/82
--- NOTE | 2019-05-07 19:30 | NUR ---
MS RN NOTE PATIENT IN BED WITH NO DISCOMFORT OR DISTRESS. ON ROOM AIR WITH NO SIGNS OF SOB. PATIENT HAS PICC LINE ON YANICK PATENT AND FLUSHING. PATIENT COMPLAINS OF SLIGHT HEADACHE WILL FOLLOW UP WITH PRESCRIBED ORDERS. PATIENT IS ABLE TO AMBULATE WITH ASSISTANCE IF NEEDED. ALL SAFETY PRECAUTIONS APPLIED. SIDE RAILS UP X2, CALL LIGHT WITHIN REACH, AND BED LOCKED IN LOW POSITION. WILL CONTINUE TO MONITOR
--- NOTE | 2019-05-07 19:35 | NUR ---
MS LITTLE NOTES RECEIVED PT IN BED A/O X4. RESPIRATION WNL. PICC LINE FLUSHED AN PATENT. BED AT LOWEST POSITION LOCKED . CALL LIGHT WITHIN REACH. WILL CONTINUE TO MONITOR. Addendum: 05/07/19 at 1942 by REMINGTON UREÑA RN FOR WRONG PT.
--- NOTE | 2019-05-07 19:43 | NUR ---
MS RN NOTES PATIENT IS UP READY TO USE THE BATHROOM. NO SIGNS OF DISCOMFORT AND PAIN NOTED AT THIS TIME. PICC LINE IS FLUSHED WELL AND PATENT. ALL SAFETY MEASURE IMPLEMENTED BED LOCKED AT THE LOWEST POSITION, CALL LIGHT WITHIN CLOSE REACH. ENDORSED TO MEDICAL SCIENTIFIC OFFICER NURSE FOR ELVIS.
[2019-05-07 20:00] VITALS: BP 122/81
[2019-05-08] MEDS: PIPERACILLIN /TAZOBACTAM 3.375 G in IV D5W 100 ML IV SCH ×3 (01:05→16:05)
[2019-05-08 04:00] VITALS: BP 107/70
[2019-05-08] MEDS: INSULIN REGULAR, HUMAN 100 UNIT/ML 3 ML VIAL SQ PRN ×3 (06:45→21:36)
[2019-05-08] MEDS: BLOOD SUGAR DIAGNOSTIC 1 EACH STRIP IN SCH ×4 (06:49→21:25)
--- NOTE | 2019-05-08 07:23 | NUR ---
MS RN CLOSING NOTES PATIENT IN BED WITH NO SIGNS OF DISTRESS. NO SOB ON ROOM AIR. ALL SAFETY PRECAUTIONS APPLIED. ENDORSED PATIENT TO MORNING NURSE
[2019-05-08 07:31] LABS: CALCIUM, SERUM 8.7 mg/dL (8.5-10.1); CREATININE 0.6 mg/dL (0.6-1.3); POTASSIUM 3.8 mmol/L (3.5-5.1)
--- NOTE | 2019-05-08 07:40 | NUR ---
MS RN NOTES PATIENT IN BED, RESTING COMFORTABLY , NO SIGNS OF DISCOMFORT AND PAIN OR SOB NOTED AT THIS TIME. PICC LINE IS FLUSHED WELL AND PATENT. ALL SAFETY MEASURE IMPLEMENTED BED LOCKED AT THE LOWEST POSITION, CALL LIGHT WITHIN CLOSE REACH.PLAN OF CARE DISCUSSED WITH PATIENT, WILL CONT TO MONITOR
[2019-05-08] MEDS: VANCOMYCIN 0.75 GM in IV D5W 250 ML IV SCH (07:48)
[2019-05-08 08:00] VITALS: BP 111/67
--- NOTE | 2019-05-08 08:30 | NUR ---
MS RN NOTE FAXED TO PHARMACY AND SPOKE WITH PHARMACIST ABOUT PX
[2019-05-08] MEDS: INSULIN GLARGINE, 100 UNIT/ML CARTRIDGE SQ SCH (09:21)
[2019-05-08] MEDS: ENOXAPARIN SODIUM 40 MG/0.4 ML DISP.SYRIN SQ SCH (09:22)
[2019-05-08] MEDS: CIPROFLOXACIN HCL 0.3% 5 ML BOTTLE OT SCH ×2 (09:33→21:21)
[2019-05-08] MEDS: LACTOBACILLUS RHAMNOSUS GG 1 EACH CAP.SPRINK PO SCH ×2 (09:33→16:05)
--- NOTE | 2019-05-08 11:19 | NUR ---
SAMPLE SELECTOR NOTE DR ROSALES AT BEDSIDE PX GIVEN , CALLED PHARMACY PER JAZZY CASE [facility] GIVENTO BE ARANGED AND F\U WITH ENT DOCTOR
[2019-05-08] MEDS: IBUPROFEN 600 MG TABLET PO PRN ×2 (11:57→21:10)
[2019-05-08] MEDS: *INSULIN REGULAR(HUMULIN R)HUM 100 UNIT/ML VIAL SQ PRN (12:19)
--- NOTE | 2019-05-08 12:55 | NUR ---
MS RN NOTE MOTRIN FOR HEADACHE GIVEN ,HAVING LUNCH , NOT IN DISTRESS CONT ON ZOSYN ADMINISTRATION IV
--- NOTE | 2019-05-08 13:37 | NUR ---
MS RN NOTE STILL NO ENT DR AVAILABLE TO ARRANGE FOR DISCHARGE PER FOOD SAMPLER , PATIENT STILL AWAITING ,DR ROSALES NOTIFIED
[2019-05-08 16:00] VITALS: BP 96/56
--- NOTE | 2019-05-08 16:40 | NUR ---
MS LITTLE NOTE NOT AVAILABLE ENT DOCTOR YET, SPOKE WITH SUBSTATION TECHNICIAN STILL LOOKING Addendum: 05/08/19 at 1720 by CECILIA CHILDERS RN SPOKE WITH CASE MANAGE ABOUT ENT DOCTOR TO F\U ,NOT AVAILABLE YET , STATED THAT WILL CALL DR ROSALES ABOUT IT Addendum: 05/08/19 at 1749 by CECILIA CHILDERS RN PER SUBSTATION TECHNICIAN JAZZY SPOKE WITH DR ROSALES ABOUT F\U ENT DOCTOR APPOINTMENT, NOT AVAILABLE YET DUE TO INSURANCE ISSUES ,DR ROSALES AWARE OF CURRENT SITUATION , AROLDO NELSON FOR SUBSTATION TECHNICIAN UPDATE
--- NOTE | 2019-05-08 18:24 | NUR ---
MS RN NOTE CONT ON ATB ORDERED , HAVING DINNER , ABLE TO EAT SELF ,NOT IN DISTRESS STILL AWAITING FROM AGRICULTURAL ENGINEERING TECHNICIANS FOR ENT DOCTOR PRIOR DISCHARGE
[2019-05-08 20:00] VITALS: BP_SYST 103; BP_SYST 122; BP_DIAS 70; BP_DIAS 81
[2019-05-08] MEDS ORDERED: VANCOMYCIN 1.25 GM in IV D5W 500 ML IV SCH (20:00)
--- NOTE | 2019-05-08 20:49 | NUR ---
MS RAG ROOM SUPERVISOR Opening Note; Recieved pt AAO x4; in bed in room watching TV; Rt PICC line place Intact dry dressing patent; Pt C/o pain in Rt ear 12/01; Pt able to make needs known; bed in lowest position no s/s of any resp distress; call reyes in place; will continue to monitor
[2019-05-08] MEDS: VANCOMYCIN HCL 1.25 GM in IV D5W 250 ML IV SCH (21:36)
[2019-05-09] MEDS: PIPERACILLIN /TAZOBACTAM 3.375 G in IV D5W 100 ML IV SCH ×3 (00:49→10:38)
[2019-05-09 04:00] VITALS: BP 98/58
[2019-05-09 06:47] LABS: CALCIUM, SERUM 8.7 mg/dL (8.5-10.1); CREATININE 0.6 mg/dL (0.6-1.3)
--- NOTE | 2019-05-09 07:20 | NUR ---
MS/RN OPENING NOTES RECEIVED PATIENT IN BED, AWAKE ALERT AND ABLE TO MAKE NEEDS KNOWN. PATIENT RESTING COMFORTABLY. NO PAIN OR ACUTE DISTRESS AT THIS TIME. RESPIRATION EVEN AND UNLABORED. SKIN IS DRY WARM TO TOUCH. PATIENT NOTED WITH PICC LINE, FLUSHING WELL. INTACT AND PATENT. ALL NEEDS ANTICIPATED. CALL LIGHT WITHIN REACHED. SAFETY MAINTAINED. BED LOCKED AND IN LOWEST POSITION. PLAN OF CARE DISCUSSED. WILL CONTINUE TO MONITOR CLOSELY.
[2019-05-09 08:00] VITALS: BP 93/55
[2019-05-09] MEDS: BLOOD SUGAR DIAGNOSTIC 1 EACH STRIP IN SCH (08:09)
[2019-05-09] MEDS: LACTOBACILLUS RHAMNOSUS GG 1 EACH CAP.SPRINK PO SCH (08:10)
[2019-05-09] MEDS: VANCOMYCIN HCL 1.25 GM in IV D5W 250 ML IV SCH (08:10)
[2019-05-09] MEDS: INSULIN REGULAR, HUMAN 100 UNIT/ML 3 ML VIAL SQ PRN (08:14)
[2019-05-09] MEDS: INSULIN GLARGINE, 100 UNIT/ML CARTRIDGE SQ SCH (08:16)
[2019-05-09] MEDS: ENOXAPARIN SODIUM 40 MG/0.4 ML DISP.SYRIN SQ SCH (08:17)
[2019-05-09] MEDS: CIPROFLOXACIN HCL 0.3% 5 ML BOTTLE OT SCH (10:19)
--- NOTE | 2019-05-09 10:38 | NUR ---
MS/RN NOTES MEDICATION ZOSYN WAS ADMINISTERED AT THIS TIME PER PATIENTS REQUEST. PATIENT CONTINUES TO REMAIN IN STABLE CONDITION. WILL CONTINUE TO MONITOR.
[2019-05-09] MEDS: IBUPROFEN 600 MG TABLET PO PRN (10:49)
--- NOTE | 2019-05-09 11:50 | NUR ---
MS/AFTER SCHOOL DRIVER NOTES ALL DISCHARGE PAPERS WAS SIGNED AND GIVEN. DISCHARGE TEACHINGS WAS PROVIDED AND TO FOLLOW UP WITH HER PCP AND HOME HEALTH. IV ACCESS WAS FLUSHED BEFORE LEAVING. SKIN IS INTACT. ACCORDING TO PATIENT SHE WILL GET PICKED UP BY [facility]. ACCOMPANIED PATIENT TO THE LOBBY. PATIENT LEFT THE HOSPITAL IN STABLE CONDITION.
[2019-05-10] MEDS ORDERED: INSULIN GLARGINE, 100 UNIT/ML CARTRIDGE SQ SCH (09:00)
== END 2019-05-09 12:00 | disposition home health service (06) | DRG 115 ==
LOC: ER 23:23 → ICU 05-02 02:50 → MEDSG1 05-03 17:55
PROVIDERS: ADMIT Nurse Practitioner Acute Care; ATTEND Internal Medicine
PROC: B548ZZA Ultrasonography of Superior Vena Cava, Guidance (ICD-10-PCS; principal; 2019-05-02)
PROC: 02HV33Z Insertion of Infusion Device into Superior Vena Cava, Percutaneous Approach (ICD-10-PCS; principal; 2019-05-02)
DX: H60.21 Malignant otitis externa, right ear (principal); E11.10 Type 2 diabetes mellitus with ketoacidosis without coma; E83.39 Other disorders of phosphorus metabolism; E87.1 Hypo-osmolality and hyponatremia; Z79.84 Long term (current) use of oral hypoglycemic drugs; E86.0 Dehydration; D72.829 Elevated white blood cell count, unspecified; E87.6 Hypokalemia; H60.11 Cellulitis of right external ear; Z79.4 Long term (current) use of insulin; H65.91 Unspecified nonsuppurative otitis media, right ear; F43.9 Reaction to severe stress, unspecified
CPT/HCPCS: 36415; 36569; 36600; 70481-TC; 80048-TC; 80053-TC; 80202-TC; 81000-TC; 82010-TC; 82962-TC; 83605-TC; 83735-TC; 84100-TC; 84703-TC; 85025-TC; 85652-TC; 87040-TC; 87070-TC; 87081-TC; C1751; G0378; J1650; J1815; J1885; J2405; J2543; J3370; J3475; J3480; J3490; J7030; J7042; J7050; J7060; J7070; Q9967